=== PATIENT | male | born 1970 | race Two or more races ===

== ENCOUNTER 2016-10-23 13:42 | Emergency (ER) | payer OTHER ==
[~2016-10-23] VITALS: Ht 198.1 cm; Wt 200.0 kg
[2016-10-23] MEDS ORDERED: ASPIRIN 81MG TABLET PO STA (14:27)
[2016-10-23] MEDS ORDERED: SODIUM CHLORIDE 0.9% 500 ML IV ONE (14:27)
[2016-10-23 14:45] VITALS: BP 148/83
[2016-10-23 15:23] LABS: BASOPHILS % 1.1 % (0.0-2.0); EOSINOPHILS % 1.7 % (0.0-5.0); HEMATOCRIT. 37.7 % (42.0-52.0); HEMOGLOBIN. 12.5 g/dL (14.0-18.0); MEAN CORPUSCULAR HEMOGLOBIN 28.7 pg (28.0-32.0); MEAN CORPUSCULAR HGB CONC 33.2 g/dL (31.0-37.0); MEAN CORPUSCULAR VOLUME 86.4 fL (80.0-94.0); MEAN PLATELET VOLUME 8.2 fl (7.4-10.4); MONOCYTES % 5.3 % (2.0-8.0); NEUTROPHILS % 70.9 % (40.0-76.0); PLATELET 283 x1000/uL (130-400); RED BLOOD CELL COUNT 4.37 mill/uL (4.7-6.1); RED CELL DISTRIBUTION WIDTH 13.7 % (11.6-14.6); WHITE BLOOD COUNT 10.8 x1000/uL (4.5-11.0)
[2016-10-23 15:28] LABS: CHLORIDE 106 mEq/L (98-107); INDEX HEMOLYSI 1 (1-3); INDEX ICTERIC 1 (1-4); INDEX LIPEMIC 1 (1-3)
[2016-10-23 15:29] LABS: PARTIAL THROMBOPLASTIN TIME 25.3 sec (24.0-34.0)
[2016-10-23 15:33] LABS: CARBON DIOXIDE 25 mEq/L (21-32)
[2016-10-23 15:34] LABS: ALANINE AMINOTRANSFERASE 16 IU/L (13-61); ALBUMIN 3.1 g/dL (3.4-5.0); ANION GAP 11; CALCIUM 7.9 mg/dL (8.5-10.1); LIPASE 72 IU/L (73-393); UREA NITROGEN BLOOD 13 mg/dL (7-21); eGFR > 60 mL/min (>60)
[2016-10-23 15:38] LABS: TROPONIN I < 0.02 ng/mL (0.00-0.04)
== END 2016-10-23 18:20 | disposition left against medical advice (07) ==
LOC: ER 14:42
DX: R00.2 Palpitations (principal); R07.89 Other chest pain; Z88.2 Allergy status to sulfonamides; Z88.8 Allergy status to other drugs, medicaments and biological substances
CPT/HCPCS: 36415; 71010; 80053; 83690; 84443; 84484; 85025; 85610; 85730; 93005; 96360; 96361; 99285; J7040; Z7610